=== PATIENT | male | born 1950 | race Caucasian/White ===

== ENCOUNTER → 2017-05-13 | Outpatient (CLI) | payer MEDICARE, OTHER ==
--- NOTE | 2017-05-14 09:55 | RADIOLOGY REPORT (SQ) ---
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 RADIONUCLIDE AND DOSE: 12.0 mCi F18 FDG The route of agent administration: Intravenous FASTING BLOOD SUGAR: 117 mg/dl CONTRAST TYPE AND DOSE: No CT contrast given. TECHNIQUE: Blood glucose level was verified. Above dose of FDG was injected intravenously. 2-D seg mented attenuation correction images were obtained from the base of the skull to the midthighs. Nonc ontrast CT images were obtained for attenuation correction and fusion with emission images. CT image s were performed without oral or intravenous contrast and are not sensitive for parenchymal lesions. A series of overlapping emission PET images were obtained. Images reviewed and manipulated at [facility] [employer] work station by the radiologist. Images stored on PACS. LIMITATIONS: None. FINDINGS: HEAD AND NECK: No areas of abnormal metabolic activity in the soft tissues of the head and neck. CHEST: Moderately large hiatal hernia. Small focal area of increased activity at the gastroesophagea l junction with maximum SUV value 5.25. No other areas of abnormal metabolic activity in the chest. ABDOMEN AND PELVIS: No areas of abnormal metabolic activity in the abdomen or pelvis. Expected physi ologic activity is present in the genitourinary system and bowel. PROXIMAL LOWER EXTREMITIES: No areas of abnormal metabolic activity in the soft tissues of the lower extremities. BONES: No abnormal metabolic activity in the visualized skeleton. ADDITIONAL CT FINDINGS: Gallstones. Parapelvic cyst in the right kidney. 2.2 x 3.2 cm low-attenuati on lesion in the left adrenal gland with no abnormal activity on PET images. Mean Hounsfield units m easuring essentially 0. No additional significant findings on the noncontrast CT images. OTHER: No other significant findings. IMPRESSION: 1. MODERATELY LARGE HIATAL HERNIA. FOCAL AREA OF INCREASED ACTIVITY AT THE GASTROESOPHAGEAL JUNCTION WITH MAXIMUM SUV VALUE 5.25 CORRESPONDING WITH THE KNOWN ADENOCARCINOMA. THE REMAINDER OF THE PET S CAN IS OTHERWISE UNREMARKABLE WITH NO EVIDENCE OF REGIONAL OR METASTATIC INVOLVEMENT. 2. 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 3. OTHER INCIDENTAL FINDINGS INCLUDING GALLSTONES AND RIGHT RENAL CYST. TECHNICAL DOCUMENTATION: JOB ID: [id number]- All Rights Reserved
== END ==
LOC: RAD 19:55
PROVIDERS: ATTEND Internal Medicine Medical Oncology
DX: C15.9 Malignant neoplasm of esophagus, unspecified (principal)
CPT/HCPCS: 78815; A9552

== ENCOUNTER → 2018-08-27 | Outpatient (CLI) | payer MEDICARE, OTHER ==
--- NOTE | 2018-08-27 09:57 | RADIOLOGY REPORT (SQ) ---
EXAM DESCRIPTION: CHEST PA/LATERAL COMPLETED DATE/TIME: 08/27/2018 9:16 am REASON FOR STUDY: GE JUNCTION CARCINOMA COMPARISON: None. EXAM PARAMETERS: NUMBER OF VIEWS: two views TECHNIQUE: Digital Frontal and Lateral radiographic views of the chest acquired. RADIATION DOSE: NA LIMITATIONS: none FINDINGS: LUNGS AND PLEURA: Slight linear scarring at the left lung base. No acute pulmonary conso lidation. No pneumothorax or pleural effusion. MEDIASTINUM AND HILAR STRUCTURES: Moderate to large hiatal hernia. The patient also has a known gas troesophageal junction neoplasm. HEART AND VASCULAR STRUCTURES: Heart normal size. No evidence for failure. BONES: No acute findings. HARDWARE: Post surgical changes left hilar region. OTHER: No other significant finding. IMPRESSION: 1. No acute pulmonary findings. Linear subsegmental atelectasis or scar left lung base . 2. Moderate to large hiatal hernia. The patient has a known history of gastroesophageal junction lyubov plasm. TECHNICAL DOCUMENTATION: JOB ID: [id number] [employer]- All Rights Reserved Reading location - IP/workstation name: [email or web address]
== END ==
LOC: OD 08:55
PROVIDERS: ATTEND Internal Medicine Medical Oncology
DX: C16.0 Malignant neoplasm of cardia (principal); K44.9 Diaphragmatic hernia without obstruction or gangrene
CPT/HCPCS: 71046